=== PATIENT | female | born 1950 | race Caucasian/White ===

== ENCOUNTER 2023-07-28 07:20 | Inpatient (IN) | payer OTHER ==
[~2023-07-28] VITALS: Ht 157.5 cm; Wt 70.8 kg
[2023-07-28] MEDS: SODIUM CHLORIDE 0.9% 1,000 ML IV ONE (07:50)
[2023-07-28 08:44] LABS: BASOPHILS % 0.9 % (0.0-2.0); HEMATOCRIT. 40.1 % (36.0-48.0); HEMOGLOBIN. 13.3 g/dL (12.0-16.0); LYMPHOCYTES % 41.2 % (20.0-50.0); MEAN CORPUSCULAR HEMOGLOBIN 30.1 pg (28.0-32.0); MEAN CORPUSCULAR HGB CONC 33.1 g/dL (31.0-37.0); MEAN CORPUSCULAR VOLUME 90.7 fL (81.0-99.0); MEAN PLATELET VOLUME 9.1 fl (7.4-10.4); MONOCYTES % 4.3 % (2.0-8.0); NEUTROPHILS % 51.6 % (40.0-76.0); PLATELET 185 x1000/uL (130-400); RED BLOOD CELL COUNT 4.43 mill/uL (4.2-5.4); RED CELL DISTRIBUTION WIDTH 14.3 % (11.6-14.6); WHITE BLOOD COUNT 5.5 x1000/uL (4.5-11.0)
[2023-07-28 08:45] LABS: PROTHROMBIN TIME 10.7 sec (9.6-11.0)
[2023-07-28 08:50] LABS: ALANINE AMINOTRANSFERASE 17 IU/L (10-49); ALBUMIN 4.1 g/dL (3.2-4.8); ASPARTATE AMINOTRANSFERASE 23 IU/L (<34); BILIRUBIN TOTAL 1.1 mg/dL (0.1-1.0); CARBON DIOXIDE 27 mEq/L (21-32); CHLORIDE 107 mEq/L (98-107); CREATININE 0.9 mg/dL (0.6-1.0); GLUCOSE 190 mg/dL (70-105); POTASSIUM 4.2 mEq/L (3.5-5.1); PROTEIN TOTAL 6.8 g/dL (6.0-8.3); SODIUM 139 mEq/L (136-145); TROPONIN I HIGH SENSITIVITY 11 ng/L (3.0-34); UREA NITROGEN BLOOD 27 mg/dL (9-23)
[2023-07-28 10:51] LABS: TROPONIN I HIGH SENSITIVITY 25 ng/L (3.0-34)
[2023-07-28 12:52] LABS: BASOPHILS % 0.7 % (0.0-2.0); EOSINOPHILS % 0.2 % (0.0-5.0); HEMATOCRIT. 34.2 % (36.0-48.0); HEMOGLOBIN. 11.7 g/dL (12.0-16.0); LYMPHOCYTES % 18.5 % (20.0-50.0); MEAN CORPUSCULAR HEMOGLOBIN 30.6 pg (28.0-32.0); MEAN CORPUSCULAR HGB CONC 34.2 g/dL (31.0-37.0); MEAN CORPUSCULAR VOLUME 89.5 fL (81.0-99.0); MEAN PLATELET VOLUME 8.4 fl (7.4-10.4); MONOCYTES % 2.7 % (2.0-8.0); NEUTROPHILS % 77.9 % (40.0-76.0); PLATELET 175 x1000/uL (130-400); RED BLOOD CELL COUNT 3.83 mill/uL (4.2-5.4); RED CELL DISTRIBUTION WIDTH 14.6 % (11.6-14.6); WHITE BLOOD COUNT 6.6 x1000/uL (4.5-11.0)
[2023-07-28] MEDS ORDERED: IPRATROPIUM/ALBUTEROL 0.5-3(2.5)MG/3ML NEB HHN PRN (15:30)
[2023-07-28] MEDS ORDERED: ACETAMINOPHEN 325MG TABLET PO PRN (15:30)
[2023-07-28] MEDS ORDERED: DEXTROSE 50% WATER 50ML SYRINGE IV PRN (15:30)
[2023-07-28] MEDS ORDERED: ONDANSETRON HCL 4MG/2ML INJ IV PRN (15:30)
[2023-07-28] MEDS ORDERED: DOCUSATE SODIUM 100MG CAPSULE PO PRN (15:30)
[2023-07-28] MEDS: PANTOPRAZOLE SODIUM 40 MG/VIAL IV SCH (15:45)
[2023-07-28] MEDS: SODIUM CHLORIDE 0.9% 500 ML IV ONE (15:45)
[2023-07-28] MEDS: BLOOD SUGAR DIAGNOSTIC STRIP TEST SCH (17:00)
[2023-07-28] MEDS: INSULIN LISPRO 100 UNITS/ML SUBCUT SCH (18:14)
[2023-07-28] MEDS ORDERED: IOHEXOL-350 100 ML BOTTLE ONE (21:21)
[2023-07-28 21:46] VITALS: BP 134/56; PULSE 60; RESP 22; TEMP 98.8
[2023-07-28] MEDS: ACETAMINOPHEN 325MG TABLET PO PRN (23:33)
[2023-07-29] VITALS (7 sets, daily range): BP systolic 97–113; BP diastolic 47–58; PULSE 56–68; RESP 17–20; TEMP 98.1–98.6; O2SAT 100
[2023-07-29] MEDS ORDERED: ASPI-1497 PO (02:20)
[2023-07-29 07:53] LABS: HEPATITIS B SURFACE ANTIGEN NEGATIVE (Negative); HEPATITIS C AB NON REACTIVE (Neg) (Negative)
[2023-07-29 08:01] LABS: BASOPHILS % 0.8 % (0.0-2.0); EOSINOPHILS % 1.9 % (0.0-5.0); HEMATOCRIT. 32.8 % (36.0-48.0); HEMOGLOBIN. 11.1 g/dL (12.0-16.0); MEAN CORPUSCULAR HEMOGLOBIN 30.8 pg (28.0-32.0); MEAN CORPUSCULAR HGB CONC 33.9 g/dL (31.0-37.0); MEAN CORPUSCULAR VOLUME 90.9 fL (81.0-99.0); MEAN PLATELET VOLUME 8.9 fl (7.4-10.4); MONOCYTES % 5.3 % (2.0-8.0); PLATELET 163 x1000/uL (130-400); RED BLOOD CELL COUNT 3.61 mill/uL (4.2-5.4); RED CELL DISTRIBUTION WIDTH 14.7 % (11.6-14.6); WHITE BLOOD COUNT 5.3 x1000/uL (4.5-11.0)
[2023-07-29 08:04] LABS: CALCIUM 8.3 mg/dL (8.7-10.4); CARBON DIOXIDE 24 mEq/L (21-32); CHLORIDE 111 mEq/L (98-107); CREATININE 0.6 mg/dL (0.6-1.0); GLUCOSE 132 mg/dL (70-105); POTASSIUM 3.7 mEq/L (3.5-5.1); SODIUM 140 mEq/L (136-145); UREA NITROGEN BLOOD 14 mg/dL (9-23)
== END 2023-07-29 19:07 | disposition home or self-care (01) | DRG 300 ==
LOC: ER 07:20 → 3WST 13:00 → EDBEDREQTM 13:01 → EDBEDREQ 13:01
PROVIDERS: ADMIT Internal Medicine; ATTEND Internal Medicine
DX: I83.891 Varicose veins of right lower extremity with other complications (principal); I82.593 Chronic embolism and thrombosis of other specified deep vein of lower extremity, bilateral; D64.9 Anemia, unspecified; E11.9 Type 2 diabetes mellitus without complications; I10 Essential (primary) hypertension; Z88.0 Allergy status to penicillin; I95.9 Hypotension, unspecified
CPT/HCPCS: 36415; 71045; 75635; 80048; 80053; 82962; 83605; 84484; 85025; 86705; 86850; 86900; 87340; 93005; 93970; 99291; C9113; J7030; Q9967